=== PATIENT | male | born 1995 | race African-American/Black ===

== ENCOUNTER 2020-02-15 16:36 | Emergency (ER) | payer BC, SELFPAY ==
[2020-02-15] MEDS ORDERED: Lorazepam 2 MG/ML VIAL ONE (16:56)
[2020-02-15 17:13] LABS: #Basophils 0.1 thou/uL (0.0-0.2); #Eosinphils 0.1 thou/uL (0.0-0.7); #Lymphocytes 1.4 thou/uL (1.20-3.40); #Monocytes 1.3 thou/uL (0.11-0.59); #Neutrophils 10.6 thou/uL (1.40-6.50); %Basophils 0.4 % (0.0-1.0); %Eosinophils 0.4 % (0.0-10.0); %Lymphocytes 10.2 % (21.0-51.0); %Monocytes 9.4 % (0.0-10.0); %Neutrophils 79.6 % (42.0-75.0); Hemoglobin 18.6 g/dL (14.0-18.0); Mean Corpuscular HGB CONC 33.7 g/dL (32.0-36.0); Mean Corpuscular Volume 94.7 fL (78.0-98.0); Mean Platelet Volume 10.2 fL (7.4-10.4); Platelet Count 197 thou/uL (130-400); RBC Distribution Width 12.5 % (11.5-14.5); Red Blood Cell (RBC) Count 5.83 mill/uL (4.70-6.10); White Blood Cell (WBC) Count 13.3 thou/uL (4.8-10.8)
[2020-02-15 17:36] LABS: ALT (SGPT) 19 U/L (8-55); AST (SGOT) 23 U/L (5-34); Acetaminophen Less than 6.0 mcg/mL (10.0-30.0); Albumin 5.2 g/dL (3.5-5.0); Alcohol Less than 10 mg/dL (Less than 10); Alkaline Phosphatase 86 U/L (40-110); Anion Gap 21 mmol/L (10-20); BUN (Urea Nitrogen) 17 mg/dL (8.9-20.6); Bilirubin, Total 1.5 mg/dL (0.2-1.2); CK (CPK) 369 U/L (30-200); Calc. Creatinine Clearance 0 mL/min (70-130); Calcium 10.6 mg/dL (7.8-10.44); Carbon Dioxide 25 mmol/L (22-29); Chloride 98 mmol/L (98-107); Globulin 4.3 g/dL (2.4-3.5); Glucose 184 mg/dL (70-105); Potassium 3.9 mmol/L (3.5-5.1); Protein, Total 9.5 g/dL (6.0-8.3); Salicylate Less than 8.0 mg/dL (15.0-30.0); Sodium 140 mmol/L (136-145)
[2020-02-15 18:44] LABS: Bilirubin Negative (Negative); Blood, Urine Trace (Negative); Clarity Clear (Clear); Glucose, Urine (Dipstick) 30 mg/dL (Negative); Ketone, Urine Trace mg/dL (Negative); Leukocyte 25 Leu/uL (Negative); Mucous/LPF Rare LPF (<2+); Nitrite Negative (Negative); Protein, Urine (Dipstick) 70 mg/dL (Neg-Trace); Specific Gravity, Urine 1.023 (1.002-1.036); Squamous Epithelial 0-3 HPF (0-3); Urobilinogen Normal mg/dL (Less than 2)
[2020-02-15 18:45] LABS: Bacteria/HPF 1+ HPF (None Seen)
[2020-02-15 18:59] LABS: Amphetamine Detected (NotDetected); Barbiturates Screen Not Detected (NotDetected); Benzodiazepine Screen Not Detected (NotDetected); Cocaine Metabolite Screen Detected (NotDetected); Medtox Control Line Valid? VALID (VALID); Medtox Reader # READER 4; Methadone Not Detected (NotDetected); Methamphetamine Detected (NotDetected); Opiate Screen Not Detected (NotDetected); Oxycodone Screen Not Detected (NotDetected); Phencyclidine (PCP) Not Detected (NotDetected); THC/Cannabinoid Screen Detected (NotDetected); Tricyclic Screen Not Detected (NotDetected)
[2020-02-15] MEDS ORDERED: Azithromycin 500 MG VIAL ONE (19:18)
[2020-02-15] MEDS ORDERED: cefTRIAXone\\ROCEPHIN 250 MG VIAL ONE (19:18)
[2020-02-15] MEDS ORDERED: Azithromycin 250 MG TAB ONE (19:19)
[2020-02-15 21:05] LABS: Anion Gap 16 mmol/L (10-20); BUN (Urea Nitrogen) 14 mg/dL (8.9-20.6); Calc. Creatinine Clearance 0 mL/min (70-130); Calcium 8.8 mg/dL (7.8-10.44); Carbon Dioxide 22 mmol/L (22-29); Chloride 105 mmol/L (98-107); Glucose 89 mg/dL (70-105); Potassium 3.8 mmol/L (3.5-5.1); Sodium 139 mmol/L (136-145)
--- NOTE | 2020-02-23 15:55 | EKG ---
Test Reason : Blood Pressure : / mmHG Vent. Rate : 135 BPM Atrial Rate : 135 BPM P-R Int : 122 ms QRS Dur : 082 ms QT Int : 308 ms P-R-T Axes : 086 090 058 degrees QTc Int : 462 ms Sinus tachycardia with occasional Premature ventricular complexes Possible Left atrial enlargement Rightward axis Borderline ECG Confirmed by AMAYA MCKENZIE ([id number]), deputy editor in chief BIANCA STEWART ([id number]) on 02/23/2020 3:55:07 PM Referred By: Confirmed By:AMAYA MCKENZIE
--- NOTE | 2020-02-23 15:55 | EKG ---
Test Reason : Blood Pressure : / mmHG Vent. Rate : 100 BPM Atrial Rate : 100 BPM P-R Int : 128 ms QRS Dur : 088 ms QT Int : 348 ms P-R-T Axes : 067 076 046 degrees QTc Int : 448 ms Normal sinus rhythm Possible Left atrial enlargement Early repolarization Borderline ECG Confirmed by AMAYA MCKENZIE ([id number]), editor publications BIANCA STEWART ([id number]) on 02/23/2020 3:55:11 PM Referred By: Confirmed By:AMAYA MCKENZIE
== END 2020-02-15 21:24 ==
LOC: ERS 16:36
DX: F15.10 Other stimulant abuse, uncomplicated (principal); E86.0 Dehydration; N17.9 Acute kidney failure, unspecified
CPT/HCPCS: 36415; 51701; 80053; 80306; 80307; 81003; 81015; 82550; 83735; 84443; 85025; 87086; 93005; 96365; 96375; J0456; J0696; J2060